=== PATIENT | male | born 1965 ===

== ENCOUNTER 2018-08-03 09:16 | Day surgery (SDC) | payer BC ==
[2018-07-28 13:28] VITALS: BMI 29.5
[2018-08-03 09:59] VITALS: RESP 20; TEMP 98.7
[2018-08-03 10:11] LABS: BASO # 0.03 K/mm3 (0.0-2.0); BASO % 0.3 % (0.0-3.0); EOS # 0.2 (0.0-0.7); EOS % 2.3 % (1.5-5.0); GRAN # 6.14 (1.4-6.5); GRAN % 67.5 % (50.0-68.0); LYMPH # 2.2 (1.2-3.4); LYMPH % 24.3 % (22.0-35.0); MEAN CELL VOLUME 82.7 fl (80.0-105.0); MEAN CORPUSCULAR HEMOGLOBIN 30.3 pg (25.0-35.0); MEAN CORPUSCULAR HGB CONC 36.7 g/dl (31.0-37.0); MEAN PLATELET VOLUME 10.9 fl (7.0-11.0); MONO # 0.5 (0.1-0.6); MONO % 5.6 % (1.0-6.0); RBC 6.17 10^6/uL (3.5-6.1); RED CELL DISTRIBUTION WIDTH 13.3 % (11.5-14.5); WHITE BLOOD COUNT 9.1 10^3/uL (4.5-11.0)
[2018-08-03 10:14] LABS: INR 0.99; PARTIAL THROMBOPLASTIN TIME 31.2 Seconds (25.1-36.5); PROTHROMBIN TIME 11.4 SECONDS (9.4-12.5)
[2018-08-03 10:17] LABS: HEMOGLOBIN 18.7 g/dL (14.0-18.0)
[2018-08-03 10:18] LABS: BLOOD UREA NITROGEN 15 mg/dL (7-21); CALCIUM 10.1 mg/dL (8.4-10.5); GFR NON-AFRICAN AMERICAN > 60
[2018-08-03] MEDS ORDERED: Lidocaine 1% Inj (20ml) ONE (11:21)
[2018-08-03] MEDS ORDERED: Midazolam 2 MG/2 ML VIAL ONE (13:29)
[2018-08-03] MEDS ORDERED: Midazolam 2 MG/2 ML VIAL IVP ONE (14:30)
[2018-08-03] MEDS ORDERED: Oxycodone/Acetaminophen 5/325 mg Tab PO PRN (14:54)
[2018-08-03] MEDS ORDERED: Sodium Chloride 0.45% 1,000 ML IV SCH (15:00)
[2018-08-03 16:22] VITALS: BP 122/77; PULSE 62; O2SAT 96
--- NOTE | 2018-08-03 19:56 | CT ---
PROCEDURE: CT guided pelvic bone marrow aspiration and biopsy HISTORY: Monoclonal gammopathy. Evaluate for multiple myeloma. PHYSICIAN(S): Jones Funk MD. TECHNIQUE: The relative risks and indications of the procedure were explained to the patient and consent obtained. The patient was placed prone on the CT scanner and preliminary images through the pelvis obtained. Conscious sedation and monitoring were provided throughout the procedure by a nurse. The right posterior superior iliac spine was selected for biopsy.. A posterior oblique approach was selected and the area prepped and draped in the usual sterile fashion. 1% Xylocaine was used to anesthetize the skin and soft tissues. A on control needle was advanced to the right posterior superior iliac spine and its position confirmed with CT. The needle was advanced through the cortex and a bone marrow aspiration performed. A blood clot was obtained. Next a single long core biopsy was performed through the right ilium. Slides were prepared. IMPRESSION: 1. CT-guided pelvic bone marrow aspiration and biopsy as described above.
== END 2018-08-03 16:30 | disposition home or self-care (01) ==
LOC: SDS 09:16
PROVIDERS: ATTEND Radiology Vascular & Interventional Radiology
DX: D47.2 Monoclonal gammopathy (principal); I10 Essential (primary) hypertension; E11.9 Type 2 diabetes mellitus without complications
CPT/HCPCS: 36415; 38221; 80048; 85025; 85610; 85730; J2250; J2405; J3010; J7030; J7120